=== PATIENT | female | born 1960 | race Caucasian/White ===

== ENCOUNTER → 2016-09-25 | Outpatient (CLI) | payer BC | LOC: MC.RAD 12:07 | DX: Z12.31 Encounter for screening mammogram for malignant neoplasm of breast (principal) ==

== ENCOUNTER → 2017-01-19 | Outpatient (CLI) | payer BC | LOC: COL.PUL 14:36 | DX: R05 Cough (principal); R06.2 Wheezing ==

== ENCOUNTER → 2017-02-16 | Outpatient (CLI) | payer BC | LOC: COL.PUL 14:00 | DX: R05 Cough (principal); R06.2 Wheezing; R94.2 Abnormal results of pulmonary function studies | CPT/HCPCS: J7674 ==

== ENCOUNTER 2017-07-01 00:45 | Emergency (ER) | payer BC ==
[~2017-07-01] VITALS: Ht 167.6 cm; Wt 59.1 kg
[2017-07-01 00:48] VITALS: TEMP 99.5
[2017-07-01] MEDS ORDERED: TRI ESTARYLLA PO (01:00)
[2017-07-01] MEDS ORDERED: ZOLOFT 100MG100 MG PO (01:00)
[2017-07-01 01:18] LABS: ALBUMIN 3.6 gm/dL (3.5-5.0); BILIRUBIN,TOTAL 0.9 mg/dL (0.0-1.0); CALCIUM 8.9 mg/dL (8.4-10.2); CREATININE, serum 0.89 mg/dL (0.52-1.25); POTASSIUM 3.9 mmol/L (3.4-5.0); TOTAL PROTEIN 6.9 gm/dL (6.4-8.2)
[2017-07-01 01:20] LABS: BASO % 0.2 % (0.0-2.0); EOS % 0.1 % (0-4.0); GRAN # 15.3 (1.4-6.5); GRAN % 87.6 % (42.2-75.2); HEMOGLOBIN 12.7 g/dl (12.5-16.0); LYMPH # 1.1 (1.2-3.4); LYMPH % 6.2 % (20.0-51.0); MEAN CELL VOLUME 85 fl (80.0-100.0); MEAN CORPUSCULAR HEMOGLOBIN 31 pg (27.0-31.0); MEAN CORPUSCULAR HGB CONC 36 g/dl (33.0-37.0); MEAN PLATELET VOLUME 9.7 fl (7.4-10.4); MONO # 0.9 (0.1-0.6); MONO % 5.3 % (1.7-9.3); PLATELET COUNT 229 K/mm3 (130-400); RED BLOOD COUNT 4.12 M/mm3 (4.10-5.30); REDCELL DISTRIBUTION WIDTH-CV 12.9 % (11.5-14.5)
[2017-07-01 01:29] LABS: C-REACTIVE PROTEIN 7.6 mg/dL (0.0-0.9); MAGNESIUM 1.9 mg/dL (1.6-2.3)
[2017-07-01 01:45] LABS: COLLECTION METHOD CLEAN CATCH
[2017-07-01 02:07] LABS: MUCOUS Present /lpf; PH 9 (5-8); URINE APPEARANCE Hazy; URINE BACTERIA Occasional /hpf; URINE BILIRUBIN Negative (NEGATIVE); URINE BLOOD Negative (NEGATIVE); URINE COLOR Yellow; URINE GLUCOSE Negative (NEGATIVE); URINE KETONE 1+ (NEGATIVE); URINE LEUKOCYTE ESTERASE Trace (NEGATIVE); URINE NITRATE Negative (NEGATIVE); URINE PROTEIN(semi-quant) 1+ (NEGATIVE); URINE RBC 0-2 /hpf
[2017-07-01] MEDS ORDERED: LEVAQUIN 750MG750 M1 PO (04:05)
[2017-07-01 06:32] VITALS: BP 101/67; PULSE 67
== END 2017-07-01 06:27 | disposition home or self-care (01) ==
LOC: COL.ER 00:45
PROVIDERS: Emergency Medicine
DX: J18.9 Pneumonia, unspecified organism (principal); F32.9 Major depressive disorder, single episode, unspecified; Z98.51 Tubal ligation status
CPT/HCPCS: J1956; J2405; J7030; J7040

== ENCOUNTER → 2017-07-09 | Outpatient (CLI) | payer BC ==
[~2017-07-09] MED LIST: LEVAQUIN 750MG750 M1 PO; TRI ESTARYLLA PO; ZOLOFT 100MG100 MG PO
[2017-07-09 23:41] LABS: PROCALCITONIN <0.02 ng/mL (0.00-0.09)
[2017-07-11 00:42] LABS: QUANTIFERON TB GOLD Negative (Negative)
== END ==
LOC: COL.LAB 11:53
PROVIDERS: Internal Medicine Pulmonary Disease
DX: R91.8 Other nonspecific abnormal finding of lung field (principal)

== ENCOUNTER 2017-07-18 12:20 | Emergency (ER) | payer BC ==
[~2017-07-18] VITALS: Ht 167.6 cm; Wt 56.8 kg
[2017-07-18 12:24] VITALS: BP 164/72; PULSE 64; TEMP 97
[2017-07-18] MEDS ORDERED: PERCOCET 325 MG1 TA2 PO (13:44)
[2017-07-18] MEDS ORDERED: GENTAMICIN EYE D5 ML OD (13:45)
== END 2017-07-18 15:06 | disposition home or self-care (01) ==
LOC: COL.ER 12:20
DX: H57.11 Ocular pain, right eye (principal); F32.9 Major depressive disorder, single episode, unspecified; Z77.098 Contact with and (suspected) exposure to other hazardous, chiefly nonmedicinal, chemicals; Z98.51 Tubal ligation status

== ENCOUNTER → 2017-10-07 | Outpatient (CLI) | payer BC ==
[~2017-10-07] MED LIST changes: +GENTAMICIN EYE D5 ML OD; +PERCOCET 325 MG1 TA2 PO
== END ==
LOC: MC.RAD 11:20
DX: Z12.31 Encounter for screening mammogram for malignant neoplasm of breast (principal)

== ENCOUNTER → 2018-10-25 | Outpatient (CLI) | payer BC | LOC: MC.RAD 11:30 | DX: Z12.31 Encounter for screening mammogram for malignant neoplasm of breast (principal) ==

== ENCOUNTER → 2019-10-27 | Outpatient (CLI) | payer BC | LOC: MC.RAD 11:15 | DX: Z12.31 Encounter for screening mammogram for malignant neoplasm of breast (principal) ==

== ENCOUNTER → 2021-02-15 | Outpatient (CLI) | payer BC | LOC: MC.RAD 11:30 | DX: Z12.31 Encounter for screening mammogram for malignant neoplasm of breast (principal) ==

== ENCOUNTER → 2023-11-10 | Outpatient (CLI) | payer BC | LOC: MC.RAD 11:11 | DX: Z12.31 Encounter for screening mammogram for malignant neoplasm of breast (principal) ==